=== PATIENT | male | born 1965 | race Caucasian/White ===

== ENCOUNTER 2024-04-06 09:04 | Emergency (ER) | payer OTHER ==
[~2024-04-06] VITALS: Ht 188 cm; Wt 87.5 kg
[2024-04-06 10:46] VITALS: BP 155/70; TEMP 98.6; O2SAT 96
== END 2024-04-06 10:47 | disposition home or self-care (01) ==
LOC: ER 09:04
DX: S61.211A Laceration without foreign body of left index finger without damage to nail, initial encounter (principal); W25.XXXA Contact with sharp glass, initial encounter; Y93.E8 Activity, other personal hygiene; Y92.89 Other specified places as the place of occurrence of the external cause; Y99.8 Other external cause status
CPT/HCPCS: 73140-TC